=== PATIENT | female | born 1980 | race Two or more races ===

== ENCOUNTER 2024-05-15 03:25 | Emergency (ER) | payer MEDICAID, SELFPAY ==
[2024-05-15 03:36] VITALS: BP 217/102; PULSE 76; RESP 20; TEMP 36.8; O2SAT 97
--- NOTE | 2024-05-15 03:42 | EKG_ITS ---
[facility] Test Date: 2024-05-15 Pat Name: GALI PHAM Department: Room: - Gender: Female [employer]: : 1980 Requested By: ED Temporary Provider Order Number: [id number] Reading MD: ED Temporary Provider Measurements Intervals [place] Rate: 70 P: 43 TN: 135 QRS: 28 QRSD: 101 T: 25 QT: 380 QTc: 410 Interpretive Statements SINUS RHYTHM No previous ECG available for comparison /store/S0/[id number]/ecg/[id number].pdf
--- NOTE | 2024-05-15 03:50 | XR_ITS ---
Examination: PA lateral chest 2 views Technique: Upright PA lateral chest 2 views Exam date and time: May 15, 2024 0354 hrs. Comparison May 24, 2023 Indications: Chest pain today Findings: Mild prominence left ventricle Lungs are clear The osseous structures are intact Impression: No active disease
--- NOTE | 2024-05-15 03:50 | PD.EDRME ---
Rapid Medical Screening Exam RME Arrival date/time: 05/15/24 03:25 44 year old female present to ED for c/o of chest pain and elevated bp. I have greeted and performed a focused initial assessment of this patient. A comprehensive ED assessment and evaluation of the patient, analysis of all test results, and completion of the medical decision making process will be conducted by additional ED providers. Chief Complaint: General Adult/Misc Complain Time Seen by Provider: 05/15/24 03:32 Vital signs: Vital Signs Temperature 98.2 F 05/15/24 03:36 Pulse Rate 76 05/15/24 03:36 Respiratory Rate 20 05/15/24 03:36 Blood Pressure 217/102 H 05/15/24 03:36 Pulse Oximetry (%) 97 05/15/24 03:36 Oxygen Delivery Method Room Air 05/15/24 03:36
[2024-05-15 04:29] VITALS: BP 195/93; PULSE 73
[2024-05-15] MEDS: hydrALAZINE HCL 10 MG TABLET PO (04:29)
[2024-05-15 05:11] LABS: Basophils % (Auto) 1 % (0-2.5); Eosinophils # (Auto) 0.3 Thou/mm3 (0.0-0.5); Eosinophils % (Auto) 3 % (0-10); Hemoglobin 13.8 g/dL (12.0-16.0); Immature Granulocytes % (Auto) 0 % (0-0); Immature Granulocytes Auto 0.01 Thou/mm3 (0.00-0.00); Lymphocytes # (Auto) 2.5 Thou/mm3 (1.0-4.8); Lymphocytes % (Auto) 29 % (10-50); Mean Corpuscular HGB Conc 32.9 g/dl (31.0-37.0); Mean Corpuscular Hemoglobin 28.8 pg (25.0-35.0); Mean Corpuscular Volume 88 fL (80-100); Monocytes # (Auto) 0.5 Thou/mm3 (0.0-0.8); Monocytes % (Auto) 6 % (0-12); Neutrophils # (Auto) 5.3 Thou/mm3 (1.8-7.7); Neutrophils % (Auto) 62 % (37-80); Nucleated Red Blood Cell % 0 /100 WBC (0); Platelet Count 274 Thou/mm3 (140-440); RDW Standard Deviation 43.3 fL (36.4-46.3); White Blood Count 8.6 Thou/mm3 (3.6-11.0)
[2024-05-15 05:17] VITALS: BP 185/95; PULSE 73
[2024-05-15 06:18] LABS: Alanine Aminotransferase 10 U/L (10-49); Albumin, Serum 4.3 gm/dL (3.5-5.0); Albumin/Globulin Ratio 1.3 (1.2-2.2); Alkaline Phosphatase 68 U/L (46-116); Anion Gap 7 (7-16); Aspartate Amino Transferase 13 U/L (0-34); BUN/Creatinine Ratio 11 Ratio (12-20); Bilirubin,Total 0.5 mg/dL (0.3-1.2); Blood Urea Nitrogen 9 mg/dL (9-23); Calcium 10.3 mg/dL (8.3-10.6); Calcium (Corrected) 10.3 mg/dL (8.5-10.1); Carbon Dioxide 26.1 mMol/L (20.0-31.0); Chloride 105 mMol/L (98-107); Creatinine (Component) 0.8 mg/dL (0.6-1.3); Globulin 3.3 gm/dL (2.3-3.5); Glucose 102 mg/dL (74-106); Lipase 26 U/L (12-53); Osmolality,Calculated 274 (275-295); Potassium 3.5 mMol/L (3.4-5.1); Sodium 138 mMol/L (136-145); Total Protein 7.6 gm/dL (5.7-8.2); Troponin I < 0.020 ng/mL (0.0-0.045); eGFR > 60 See Note
[2024-05-15 06:20] LABS: HCG,Qualitative Serum Negative
[2024-05-15 06:30] VITALS: BP 178/104; PULSE 68; RESP 17; TEMP 36.8; O2SAT 95
--- NOTE | 2024-05-15 07:31 | EDNOTE_ITS ---
ED General RME/HPI General Chief complaint: General Adult/Misc Complain Stated complaint: High Blood Pressure Time Seen by Provider: 05/15/24 03:32 Arrival date/time: 05/15/24 03:25 44-year-old female presents emergency department complains of right-sided chest pain 2 days ago as well as elevated blood pressure patient reports previously she was taking 50 mg of her blood pressure medication to decrease her to 25 mg patient reports no shortness of breath no definite chest pain at this time Limitations: no limitations RME / HPI RME / HPI narrative: 05/15/24 03:25 44 year old female present to ED for c/o of chest pain and elevated bp. I have greeted and performed a focused initial assessment of this patient. A comprehensive ED assessment and evaluation of the patient, analysis of all test results, and completion of the medical decision making process will be conducted by additional ED providers. Related Data Previous Rx's ?Medication ?Instructions ?Recorded cyclobenzaprine 5 mg tablet 5 mg PO TID PRN muscle spasm #14 05/24/23 tabs ibuprofen 800 mg tablet (IBU) 800 mg PO Q8H #20 tabs 05/24/23 promethazine-DM 6.25 mg-15 mg/5 mL 5 ml PO Q6H #150 mL 05/24/23 oral syrup Allergies Allergy/AdvReac Type Severity Reaction Status Date / Time No Known Allergies Allergy Unknown Uncoded 09/23/16 22:08 Review of Systems Review of Systems Systems Reviewed: All systems reviewed, normal except as documented Constitutional Constitutional: Reports system reviewed and no additional complaints, except as documented, Denies fever(s) and Denies headache(s) Eyes Eyes: Reports system reviewed and no additional complaints, except as documented and Denies blurry vision ENT Ears, Nose, Mouth, and Throat: Reports system reviewed and no additional complaints, except as documented, Denies headache(s), Denies nasal congestion and Denies nasal discharge Cardiovascular Cardiovascular: Reports system reviewed and no additional complaints, except as documented, Reports chest pain and Denies dyspnea Respiratory Respiratory: Reports system reviewed and no additional complaints, except as documented, Denies chest congestion, Denies cough and Denies dyspnea Gastrointestinal Gastrointestinal: Reports system reviewed and no additional complaints, except as documented and Denies abdominal pain Integumentary/Breasts Skin/Breast: Reports system reviewed and no additional complaints, except as documented and Denies rash Neurologic Neurologic: Reports system reviewed and no additional complaints, except as documented, Reports as per HPI and Denies headache(s) Past Medical History Social History SMOKING STATUS: Never smoker ED Exam General Limitations: Present no limitations General appearance: Present alert and in no apparent distress Head Head exam: Present atraumatic Eye Eye exam: Present normal appearance, PERRL and EOMI; Absent conjunctival injection ENT ENT exam: Present normal exam, normal oropharynx and mucous membranes moist Neck Neck exam: Present normal inspection, full ROM and trachea midline Chest Chest inspection: Present normal inspection and symmetric chest wall rise Respiratory Respiratory exam: Present normal lung sounds bilaterally; Absent respiratory distress Cardiovascular Cardiovascular exam: Present regular rate, normal rhythm and normal heart sounds; Absent bradycardia, tachycardia, irregular rhythm, systolic murmur or diastolic murmur Abdominal Exam Abdominal exam: Present soft and normal bowel sounds; Absent distention, tenderness, guarding, rebound or rigidity Extremities Exam Extremities exam: Present normal inspection and full ROM Back Exam Back exam: Present normal inspection and full ROM Neurological Exam Neurological exam: Present alert, oriented X3 and CN II-XII intact Psychiatric Psychiatric exam: Present normal affect and normal mood Skin Skin exam: Present warm, dry, intact and normal color Course Quality Measures none Orders Category Date Time Status EKG (ED ONLY) *Do not use* NOW Care 05/15/24 03:42 Completed EKG (ED Only) Stat Exams 05/15/24 03:42 Draft XR chest 2V Stat Exams 05/15/24 03:50 Completed CBC Stat Lab 05/15/24 04:47 Completed CMP [Comprehensive Metabolic Panel] Stat Lab 05/15/24 04:47 Completed HCG,Qualitative Serum Stat Lab 05/15/24 04:47 Completed Lipase Stat Lab 05/15/24 04:47 Completed Troponin I Stat Lab 05/15/24 04:47 Completed hydrALAZINE HCL [Apresoline] Med 05/15/24 03:50 Discontinued 10 mg PO X1 ONE Vital Signs Vital signs: Vital Signs Temperature 98.2 F 05/15/24 03:36 Pulse Rate 76 05/15/24 03:36 Respiratory Rate 20 05/15/24 03:36 Blood Pressure 217/102 H 05/15/24 03:36 Pulse Oximetry (%) 97 05/15/24 03:36 Oxygen Delivery Method Room Air 05/15/24 03:36 O2 saturation 97% room air within normal limits Procedures -ED EKG Interpretation #1: Date of EK05/15/24 Time of EK:51 Rate: 70 Interpretation: Interpreted by me EKG Impression: Normal sinus rhythm, No acute ST-T changes, No ectopy, No ischemic changes, Normal QRS, Normal intervals and Normal axis MDM Patient data External records reviewed:: [facility] previous records Clinical information provided by:: patient Social determinants that could affect healthcare access:: none Patient has the following chronic illnesses:: Hypertension How is presenting disease/condition affected by chronic disease/condition?: c aused by Evaluation data The following diagnostics were reviewed and interpreted by me:: lab results, radiology exam(s) and EKG tracing(s) Lab and/or radiology exams considered but not ordered:: Labs, radiology, EKG obtained Interpretation Summary: Reviewed by me Medications Medications considered but not ordered:: Given Medication administrations:: Medication Administration History Discontinued Medications Hydralazine HCl (Hydralazine Hcl 10 Mg Tablet) 10 mg PO X1 ONE Stop: 05/15/24 03:51 Last Admin: 05/15/24 04:29 Dose: 10 mg Documented By: SF Given Consultations Consultation(s) initiated? (list below): No Diagnosis Differential Diagnosis ED Complaint MDM: Chest pain, atypical chest pain, pancreatitis Most likely diagnosis given after review of the tests above:: Chest pain Admission Indicated Admission indicated?: not indicated Explain why admission is indicated or not indicated:: No criteria Admission Request Was there a request for admission?: No Disposition Plan Disposition Plan: Discharge Discharge Attestation Discharge Attestation: The patient and all family members were given an opportunity to ask questions and understood the discharge instructions. Discharge instructions specifically effects, indications for sooner follow up or return to the emergency department, and the expected course of current diagnosis. Patient condition: Stable Medical Decision Making [facility] Narrative MDM Narrative: 44-year-old female presents emergency department complains of right-sided chest pain 2 days ago as well as elevated blood pressure patient reports previously she was taking 50 mg of her blood pressure medication to decrease her to 25 mg patient reports no shortness of breath no definite chest pain at this time My colleague ordered lab work chest x-ray and EKG on this patient Lab work chest x-ray and EKG all unremarkable Patient discharged home in no distress to follow-up with primary care doctor in the next 24 to 48 hours and for any worsening symptoms to return to the ER immediately Differential Diagnosis Differential Diagnosis: Chest pain, atypical chest pain, pancreatitis Medical Records Medical records reviewed: Yes I reviewed the patient's medical records. Lab Data Lab results reviewed: Yes I reviewed the patient's lab results. 05/15/24 04:47 05/15/24 04:47 Labs: Lab Results 05/15/24 Range/Units 04:47 WBC 8.6 (3.6-11.0) Thou/mm3 RBC 4.80 (4.00-5.20) Miln/mm3 Hgb 13.8 (12.0-16.0) g/dL Hct 42.0 (36.0-46.0) % MCV 88 (80-100) fL MCH 28.8 (25.0-35.0) pg MCHC 32.9 (31.0-37.0) g/dl RDW Std Deviation 43.3 (36.4-46.3) fL Plt Count 274 (140-440) Thou/mm3 Neut % (Auto) 62 (37-80) % Lymph % (Auto) 29 (10-50) % [place] % (Auto) 6 (0-12) % Eos % (Auto) 3 (0-10) % Baso % (Auto) 1 (0-2.5) % Neut # (Auto) 5.3 (1.8-7.7) Thou/mm3 Lymph # (Auto) 2.5 (1.0-4.8) Thou/mm3 [place] # (Auto) 0.5 (0.0-0.8) Thou/mm3 Eos # (Auto) 0.3 (0.0-0.5) Thou/mm3 Baso # (Auto) 0.0 (0.0-0.2) Thou/mm3 Immature Gran # (Auto) 0.01 H (0.00-0.00) Thou/mm3 Absolute Nucleated RBC 0.00 (0.00-0.00) Thou/mm3 Immature Gran % 0 (0-0) % Nucleated RBC % 0 (0) /100 WBC Sodium 138 (136-145) mMol/L Potassium 3.5 (3.4-5.1) mMol/L Chloride 105 (98-107) mMol/L Carbon Dioxide 26.1 (20.0-31.0) mMol/L Anion Gap 7 (7-16) BUN 9 (9-23) mg/dL Creatinine 0.8 (0.6-1.3) mg/dL Estim Creat Clear Calc Not Performed. eGFR > 60 (60 - ) See Note BUN/Creatinine Ratio 11 L (12-20) Ratio Glucose 102 (74-106) mg/dL Calculated Osmolality 274 L (275-295) Calcium 10.3 (8.3-10.6) mg/dL Corrected Calcium 10.3 H (8.5-10.1) mg/dL Total Bilirubin 0.5 (0.3-1.2) mg/dL AST 13 (0-34) U/L ALT 10 (10-49) U/L Alkaline Phosphatase 68 (46-116) U/L Troponin I < 0.020 (0.0-0.045) ng/mL Total Protein 7.6 (5.7-8.2) gm/dL Albumin 4.3 (3.5-5.0) gm/dL Globulin 3.3 (2.3-3.5) gm/dL Albumin/Globulin Ratio 1.3 (1.2-2.2) Lipase 26 (12-53) U/L HCG, Qual Negative Radiology Data Radiology results reviewed: Yes I reviewed the patient's radiology results. Discharge Plan Plan Patient Disposition: HOME (Self Care) Disposition Comment: Stable Prescriptions/Referrals Prescriptions/Med Rec: No Action ibuprofen [IBU] 800 mg tablet 800 mg PO Q8H Qty: 20 0RF cyclobenzaprine 5 mg tablet 5 mg PO TID PRN (Reason: muscle spasm) Qty: 14 0RF promethazine-DM 6.25-15 mg/5 mL syrup 5 ml PO Q6H Qty: 150 0RF Referrals: Robby Cao FNP [Primary Care Provider] - 05/16/24 Problem List Clinical Impression: Chest pain, Elevated blood pressure reading Patient/Caregiver Discharge Instructions Education Materials: ED Chest Pain, Noncardiac Additional Instructions: Please follow up with your primary care doctor in the next 24-48hrs for any worsening symptoms return here immediately Print Language: Kazakh Stand Alone Forms: Clarita Award Info., Work/School Release, Patient Portal Info Letter PA/[place] Supervising Physician FARHEEN/[place] Supervising Physician: Dr. Acuna
[2024-05-15 07:40] VITALS: BP 175/99; PULSE 69; RESP 18; TEMP 36.6; O2SAT 96
== END 2024-05-15 07:41 | disposition home or self-care (01) ==
PROVIDERS: Physician Assistant; Emergency Provider Emergency Medicine; PCP Nurse Practitioner Family
DX: R07.89 Other chest pain (principal); R03.0 Elevated blood-pressure reading, without diagnosis of hypertension
CPT/HCPCS: 36415; 71046; 80053; 83690; 84484; 84703; 85025; 93005; 99283; A9270